=== PATIENT | female | born 1990 | race Caucasian/White ===

== ENCOUNTER 2018-12-22 20:02 | Emergency (ER) | payer MEDICAID, OTHER ==
[~2018-12-22] VITALS: Ht 177.8 cm; Wt 104.0 kg
[~2018-12-22 20:02] MED LIST: ACET325T33 PO; CEPH500C PO; HYDR-4011 PO; IBUP-1542 PO; IBUP800T48 PO
[2018-12-22 20:08] VITALS: BP 126/73; PULSE 77; RESP 18; Ht 177.8 cm; Wt 104.0 kg
[2018-12-22] MEDS ORDERED: ACETAMINOPHEN 325 MG TAB PO STA (20:28)
--- NOTE | 2018-12-22 20:39 | ERD ---
ER Documentation Chief Complaint Chief Complaint VAGINAL BLEEDING WITH CLOTS STARTED TODAY HPI Patient is a 28-year-old male presenting to clinic for abdominal cramps and bleeding x2 days. Patient states she is 5 weeks and the bleeding started yesterday with a little bit of spotting and today she is had a little bit of clots. The patient is G2, P1, A0. The patient states she was seen at another clinic yesterday and was informed that she had a UTI and was sent home with Keflex. The patient states she has no allergies to medication and she is currently only taking vitamins. The patient also states that she has a 7 out of 10 headache that is unilateral. The patient is presenting with vitals within normal limits. The patient does not have an QUALITY TECHNICIAN yet for this . ROS All systems reviewed and are negative except as per history of present illness. Medications Home Meds Active Scripts Cephalexin* (Cephalexin*) 500 Mg Capsule, 500 MG PO BID for 10 Days, #20 CAP Prov:EMMETT BHANDARI PA-C 12/22/18 Acetaminophen* (Tylenol*) 325 Mg Tablet, 1 TAB PO Q6 PRN for PAIN AND OR ELEVATED TEMP, #20 TAB Prov:EMMETT BHANDARI PA-C 12/22/18 Allergies Allergies: Coded Allergies: No Known Allergy (Unverified , 01/01/15) PMhx/Soc History of Surgery: Yes (gallbladder) Anesthesia Reaction: No Hx Alcohol Use: No Hx Substance Use: No Hx Tobacco Use: No Smoking Status: Never smoker FmHx Family History: No diabetes, No coronary disease, No other Physical Exam Vitals Vital Signs Date Temp Pulse Resp B/P (MAP) Pulse Ox O2 O2 Flow FiO2 Time Delivery Rate 12/22/18 98.1 77 18 126/73 100 20:08 (90) Physical Exam GENERAL: The patient is well-appearing, well-nourished, in no acute distress HEENT: Atraumatic. Conjunctivae are pink. Pupils equal, round, and reactive to light. There is no scleral icterus. Tympanic membranes clear bilaterally. O ropharynx clear. No nystagmus or photophobia. NECK: C-spine is soft and supple. There is no meningismus. There is no cervical lymphadenopathy. CHEST: Clear to auscultation bilaterally. There are no rales, wheezes or rhonchi. HEART: Regular rate and rhythm. No murmurs, clicks, rubs or gallops. ABDOMEN:Soft, nontender and nondistended. Good bowel sounds. No rebound or guarding. No gross peritonitis. No gross organomegaly or masses. No Crowley sign or McBurney point tenderness. BACK: No midline or flank tenderness. EXTREMITIES: Equal pulses bilaterally. There is no peripheral clubbing, cyanosis or edema. No focal swelling or erythema. Full range of motion. Grossly neurovascularly intact. Result Diagram: 12/22/182034 Results 24 hrs Laboratory Tests Test 12/22/18 20:34 12/22/18 20:35 Urine Color YELLOW Urine Clarity TURBID Urine pH 7.0 Urine Specific [place] 1.016 Urine Ketones NEGATIVE mg/dL Urine Nitrite NEGATIVE mg/dL Urine Bilirubin NEGATIVE mg/dL Urine Urobilinogen NEGATIVE mg/dL Urine Leukocyte Esterase TRACE Mehdi/ul Urine Microscopic RBC 74 /HPF Urine Microscopic WBC 15 /HPF Urine Squamous Epithelial Cells FEW /HPF Urine Amorphous Crystals FEW /HPF Urine Mucus FEW /HPF Urine Hemoglobin 3+ mg/dL Urine Glucose NEGATIVE mg/dL Urine Total Protein NEGATIVE mg/dl White Blood Count 8.3 10^3/ul Red Blood Count 4.29 10^6/ul Hemoglobin 12.7 g/dl Hematocrit 37.8 % Mean Corpuscular Volume 88.1 fl Mean Corpuscular Hemoglobin 29.6 pg Mean Corpuscular Hemoglobin Concent 33.6 g/dl Red Cell Distribution Width 12.4 % Platelet Count 295 10^3/UL Mean Platelet Volume 8.6 fl Immature Granulocytes % 0.200 % Neutrophils % 62.6 % Lymphocytes % 28.8 % Monocytes % 6.0 % Eosinophils % 1.8 % Basophils % 0.6 % Nucleated Red Blood Cells % 0.0 /100WBC Immature Granulocytes # 0.020 10^3/ul Neutrophils # 5.2 10^3/ul Lymphocytes # 2.4 10^3/ul Monocytes # 0.5 10^3/ul Eosinophils # 0.2 10^3/ul Basophils # 0.1 10^3/ul Nucleated Red Blood Cells # 0.0 10^3/ul Beta HCG, Quantitative 7569.0 mIU/ml Current Medications Medications Dose Sig/Jay Start Time Status Last (Trade) Ordered Route PRN Stop Time Admin Dose Reason Admin 650 mg ONCE STAT 12/22/18 DC 12/22/18 Acetaminophen PO 20:28 12/22/18 21:19 (Tylenol 20:29 Tab) Procedures/MDM ED course: The patient was stable throughout the ED course. The patient and/or family informed of laboratory and diagnostic imaging results throughout the ED course. Diagnostic imaging: Read by radiologist Dr. Gold PROCEDURE: US Obstetrical 1st Trimester with endovaginal scanning and Doppler CLINICAL INDICATION: Vaginal bleeding TECHNIQUE: Multiple real-time images were acquired of the patient's maternal abdomen utilizing a curved array transducer. COMPARISON: None FINDINGS: The uterus is retroverted and normal in size measuring 8.3 cm in sagittal diameter and 6.4 x 5.1 cm in cross diameter.. There is a well implanted gestational sac within the fundus of the uterus with a mean sac diameter of 1.31 cm which corresponds to a gestational sac age of 6 weeks 1 day. A yolk sac is identified. No pole is identified. The right ovary measures 4.5 x 2.4 x 2.2 cm and contains a 1.1 cm corpus lutein cyst is evident. The left ovary measures 3.1 x 2.6 x 8-0.3 cm and appears normal. Vascular flow is demonstrated in each ovary on Doppler. There is a trace amount of free fluid in the cul-de-sac. No adnexal mass is evident. IMPRESSION: 1. Intrauterine of unknown viability. There is an intrauterine gestational sac with a yolk sac. Estimated gestational age by mean sac diameter is 6 weeks 1 day. At this early gestational age, an embryo is not yet identified and viability cannot be established. Recommend correlation with serum Beta HCG and follow-up ultrasound in 10-14 days or earlier if clinically warranted. 2. 1.1 cm right ovarian corpus lutein cyst. The left ovary appears normal. Vascular flow is demonstrated in each ovary on Doppler. 3. Trace amount of free fluid with no adnexal mass evident. Medications given in ER: Acetaminophen Patient tolerated medication well with no adverse reactions. Patient reported improvement in pain. Medical decision making: This is a 28-year-old female who is 5 weeks resenting with with vaginal bleeding. Vital signs were reviewed. Patient was afebrile. Patient was hemodynamically stable. Urine test was positive. Quantitative b-HCG was 7569.0. Patient Rh+.CBC showed no evidence of systemic infection or severe anemia. The patient UA indicated the patient has a UTI. The patient states that she was seen at another facility yesterday and was given a prescription for Keflex and she has been taking her medication. Advised the patient that I am going to send her home with another prescription just in case she cannot find that one and that is important that she treats this UTI during . I advised the patient not to double up on the medication and only fill mine if she cannot track down her Keflex. Given these findings, the patients presentation is most consistent with threatened . I have a much lower clinical concern for ectopic , ruptured ectopic , molar , subchorionic hematoma, spontaneous , incomplete , complete , missed , placental abruption, placental previa, vasa previa, uterine rupture, anembyronic . I advised the patient that she needs to return in 3 days for a recheck of beta hCG and ultrasound. Advised the patient that if the symptoms worsen to return to ER immediately. Advised the patient that she needs to contact her QUALITY TECHNICIAN and let her know that she was seen in the ER for this. The patient is agreement the treatment plan and understands the risk of threatened . The patient no further questions upon discharge Prescription for home: Keflex Acetaminophen I have discussed with the patient proper use and common side effects to expert with the medication . I advised the patient/family to speak with the pharmacist dispensing the medication to be advised of any potential drug interactions with other medication or supplements they may be taking. Discharge: At this time, patient is stable for discharge and outpatient management. I have instructed the patient to follow-up with his\her primary care physician in 1 to 2 days. I have discussed with the patient the possibility of needing to see a specialist for further work-up and imaging studies if symptoms persist. I have instructed the patient to promptly return to the ER for any new or worsening symptoms including increased pain, fever, nausea, vomiting, weakness or LOC. The patient and\or family expressed understanding of and agreement with this plan. All questions were answered. Home care instructions were provided. Disclaimer: Inadvertent spelling and grammatical errors are likely due to EHR\dictation software use and do not reflect on the overall quality of patient care. Also, please note that the electronic time recorded on the note does not necessarily reflect the actual time of the patient encounter. Departure Diagnosis: Primary Impression: Vaginal bleeding in patient at less than 20 weeks gestation Additional Impression: Threatened in first trimester Condition: EMMETT Esparza PA-C Dec 22, 2018 20:39
== END 2018-12-22 22:06 | disposition home or self-care (01) ==
LOC: FTE 20:02
DX: O20.0 Threatened abortion (principal); Z3A.01 Less than 8 weeks gestation of pregnancy
CPT/HCPCS: 36415; 76801; 76817; 81001; 84702; 85025; 86900; 86901; Z7502; Z7610

== ENCOUNTER 2018-12-23 21:41 | Emergency (ER) | payer MEDICAID ==
[~2018-12-23] VITALS: Ht 177.8 cm; Wt 105.0 kg
[2018-12-23 21:43] VITALS: Ht 177.8 cm; Wt 105.0 kg
[2018-12-24] MEDS ORDERED: ONDANSETRON (ODT) 4 MG TAB ODT STA (00:09)
[2018-12-24] MEDS ORDERED: morphine 4 MG/ML VIAL IM STA (00:09)
--- NOTE | 2018-12-24 00:27 | ERD ---
ER Documentation Chief Complaint Chief Complaint VB X 3 DAYS. HPI 28-year-old female presents with vaginal bleeding for last 3 days. She is having worsening cramping. She was seen here yesterday and had an ultrasound which shows a gestational sac and yolk sac in uterus. She had a quantitative hCG of 7569. She is Rh+. She is a G2 para 1. She was seen 2 days prior to that and had a quantitative hCG approximately 4000. She denies any tissue or clots. ROS All systems reviewed and are negative except as per history of present illness. Medications Home Meds Active Scripts Ibuprofen* (Motrin*) 600 Mg Tab, 600 MG PO Q6, #15 TAB Prov:LAXMI BAKER MD 12/24/18 Hydrocodone/Acetaminophen ([place] 5-325 Tablet) 1 Each Tablet, 1 TAB PO Q6H PRN for PAIN, #7 TAB Prov:LAXMI BAKER MD 12/24/18 Cephalexin* (Cephalexin*) 500 Mg Capsule, 500 MG PO BID for 10 Days, #20 CAP Prov:EMMETT BHANDARI PA-C 12/22/18 Acetaminophen* (Tylenol*) 325 Mg Tablet, 1 TAB PO Q6 PRN for PAIN AND OR ELEVATED TEMP, #20 TAB Prov:EMMETT BHANDARI PA-C 12/22/18 Allergies Allergies: Coded Allergies: No Known Allergy (Unverified , 01/01/15) PMhx/Soc Medical and Surgical Hx: pt denies Medical Hx History of Surgery: Yes (gallbladder) Anesthesia Reaction: No Hx Neurological Disorder: No Hx Respiratory Disorders: No Hx Cardiac Disorders: No Hx Psychiatric Problems: No Hx Miscellaneous Medical Probl: No Hx Alcohol Use: No Hx Substance Use: No Hx Tobacco Use: No Smoking Status: Never smoker FmHx Family History: No diabetes, No coronary disease, No other Physical Exam Vitals Vital Signs Date Temp Pulse Resp B/P (MAP) Pulse Ox O2 O2 Flow FiO2 Time Delivery Rate 12/23/18 98.3 83 16 116/62 98 21:43 (80) Physical Exam Const: No acute distress Head: Atraumatic Eyes: Normal Conjunctiva ENT: Normal External Ears, Nose and Mouth. Neck: Full range of motion. No meningismus. Resp: Clear to auscultation bilaterally Cardio: Regular rate and rhythm, no murmurs Abd: Soft, tenderness in the lower midline abdomen or suprapubic area. No tension McBurney's point no Crowley sign or rebound. Non distended. Normal bowel sounds Skin: No petechiae or rashes Back: No midline or flank tenderness Ext: No cyanosis, or edema Neur: Awake and alert Psych: Normal Mood and Affect Result Diagram: 12/23/18 5747 Results 24 hrs Laboratory Tests Test 12/23/18 22:46 12/23/18 22:51 Urine Color GAVI Urine Clarity CLOUDY Urine pH 6.0 Urine Specific [place] 1.027 Urine Ketones NEGATIVE mg/dL Urine Nitrite NEGATIVE mg/dL Urine Bilirubin NEGATIVE mg/dL Urine Urobilinogen NEGATIVE mg/dL Urine Leukocyte Esterase NEGATIVE Mehdi/ul Urine Microscopic RBC > 182 /HPF Urine Microscopic WBC 3 /HPF Urine Squamous Epithelial Cells FEW /HPF Urine Mucus FEW /HPF Urine Hemoglobin 3+ mg/dL Urine Glucose NEGATIVE mg/dL Urine Total Protein 2+ mg/dl White Blood Count 9.9 10^3/ul Red Blood Count 4.41 10^6/ul Hemoglobin 13.0 g/dl Hematocrit 38.8 % Mean Corpuscular Volume 88.0 fl Mean Corpuscular Hemoglobin 29.5 pg Mean Corpuscular Hemoglobin Concent 33.5 g/dl Red Cell Distribution Width 12.3 % Platelet Count 305 10^3/UL Mean Platelet Volume 8.5 fl Immature Granulocytes % 0.300 % Neutrophils % 57.6 % Lymphocytes % 34.4 % Monocytes % 5.6 % Eosinophils % 1.8 % Basophils % 0.3 % Nucleated Red Blood Cells % 0.0 /100WBC Immature Granulocytes # 0.030 10^3/ul Neutrophils # 5.7 10^3/ul Lymphocytes # 3.4 10^3/ul Monocytes # 0.6 10^3/ul Eosinophils # 0.2 10^3/ul Basophils # 0.0 10^3/ul Nucleated Red Blood Cells # 0.0 10^3/ul Beta HCG, Quantitative 6246.2 mIU/ml Current Medications Medications Dose Sig/Jay Start Time Status Last (Trade) Ordered Route PRN Stop Time Admin Dose Reason Admin Ondansetron 8 mg ONCE STAT 12/24/18 DC HCl (Zofran ODT 00:09 12/24/18 Odt) 00:10 Morphine 4 mg ONCE STAT 12/24/18 DC Sulfate IM 00:09 12/24/18 (morphine) 00:20 1 tab ONCE ONCE 12/24/18 Acetaminophen PO 00:30 12/24/18 / 00:31 Hydrocodone Bitart ([place] (5/325)) Procedures/MDM Patient is Rh+ from previous visit. Quantitative hCG is 6246 which is decreased from yesterday. Pelvic ultrasound shows yolk sac and pole now in the cervical canal suggestive of an in progress. Patient been having worsening cramping and pain throughout the ER course. She is given [place] 5 mg by mouth in addition to Tylenol. Patient presents with vaginal bleeding worsening over the last few days with signs and symptoms of likely threatened . Ectopic less likely. Normal less likely from decreasing hCGs. Patient shows no sign of hemorrhaging, surgical abdomen, sepsis. She would be treated with further observation at home, [place] and primary care follow-up this week. She is advised to return for worsening bleeding, fevers, pain, new worsening symptoms or as directed. The patient was stable with no new complaints during the ER course. Clinically, there is no current evidence to suggest meningitis, sepsis, acute abdomen, pneumonia, stroke, acute coronary syndrome, pulmonary embolism, aortic dissection or any other emergent condition appearing to require further evaluation or hospit alization. Patient counseled regarding my diagnostic impression and care plan. Prior to discharge all questions answered. Pt agrees with treatment plan and understands strict return precautions. Pt is instructed to follow up with primary care provider within 24-48 hours. Precautionary instructions provided including instructions to return to the ER if not improving or for any worsening or changing symptoms or concerns. Disclaimer: Inadvertent spelling and grammatical errors are likely due to E HR/dictation software use and do not reflect on the overall quality of patient care. Also, please note that the electronic time recorded on this note does not necessarily reflect the actual time of the patient encounter. Departure Diagnosis: Primary Impression: Threatened in first trimester Condition: Stable Patient Instructions: Vaginal Bleed in , Possible Miscarriage (Threa tened ) Referrals: NO PRIMARY,CARE PHYSICIAN (PCP) Additional Instructions: Examination showed hormone levels decreasing and appears to be likely miscarriage in progress. Recheck for heavy bleeding, tissue, pain, fevers, new worsening symptoms. See OB this week for follow-up. LAXMI BAKER MD Dec 24, 2018 00:27
[2018-12-24] MEDS ORDERED: HYDROCODONE/APAP (5/325) TAB PO ONE (00:30)
[2018-12-24 01:15] VITALS: BP 117/61; PULSE 66; RESP 16
== END 2018-12-24 01:25 | disposition home or self-care (01) ==
LOC: FTE 21:41
DX: O20.0 Threatened abortion (principal); Z3A.00 Weeks of gestation of pregnancy not specified
CPT/HCPCS: 36415; 76801; 76817; 81001; 84702; 85025; Z7502; Z7610

== ENCOUNTER 2018-12-24 01:45 | Emergency (ER) | payer MEDICAID ==
[~2018-12-24] VITALS: Ht 177.8 cm; Wt 105.7 kg
[2018-12-24 01:47] VITALS: Ht 177.8 cm; Wt 105.7 kg
[2018-12-24] MEDS ORDERED: LACTATED RINGER'S 1,000 ML IV STA (02:09)
[2018-12-24] MEDS ORDERED: ACETAMINOPHEN 500 MG TAB PO STA (03:26)
--- NOTE | 2018-12-24 04:16 | ERD ---
ER Documentation Chief Complaint Chief Complaint ABD CRAMPING PAIN, JUST PASSED POC. PASSED OU WHILE BEING TRIAGE. HPI This is a 28-year-old female who presents to the emergency room for evaluation of abdominal cramping, and miscarriage. The patient was seen in the emergency room a few hours ago and was discharged home with a diagnosis of inevitable . The patient states that when she was leaving the emergency room she actually felt some discharge and went to the restroom and she states she passed the fetus. The patient states that she was approximately 7 weeks . The patient states she felt a little weak after this happened and was brought back to the emergency room for reevaluation. ROS All systems reviewed and are negative except as per history of present illness. Medications Home Meds Active Scripts Ibuprofen* (Motrin*) 600 Mg Tab, 600 MG PO Q6, #15 TAB Prov:LAXMI BAKER MD 12/24/18 Hydrocodone/Acetaminophen ([place] 5-325 Tablet) 1 Each Tablet, 1 TAB PO Q6H PRN for PAIN, #7 TAB Prov:LAXMI BAKER MD 12/24/18 Cephalexin* (Cephalexin*) 500 Mg Capsule, 500 MG PO BID for 10 Days, #20 CAP Prov:EMMETT BHANDARI PA-C 12/22/18 Acetaminophen* (Tylenol*) 325 Mg Tablet, 1 TAB PO Q6 PRN for PAIN AND OR ELEVATED TEMP, #20 TAB Prov:EMMETT BHANDARI PA-C 12/22/18 Allergies Allergies: Coded Allergies: No Known Allergy (Unverified , 01/01/15) PMhx/Soc History of Surgery: Yes (gallbladder) Anesthesia Reaction: No Hx Neurological Disorder: No Hx Respiratory Disorders: No Hx Cardiac Disorders: No Hx Psychiatric Problems: No Hx Miscellaneous Medical Probl: No Hx Alcohol Use: No Hx Substance Use: No Hx Tobacco Use: No Smoking Status: Never smoker Physical Exam Vitals Vital Signs Date Temp Pulse Resp B/P (MAP) Pulse Ox O2 O2 Flow FiO2 Time Delivery Rate 12/24/18 98.1 78 22 117/63 99 01:47 (81) Physical Exam Const: No acute distress Head: Atraumatic Eyes: Normal Conjunctiva ENT: Normal External Ears, Nose and Mouth. Neck: Full range of motion. No meningismus. Resp: Clear to auscultation bilaterally Cardio: Regular rate and rhythm, no murmurs Abd: Soft, non tender, non distended. Normal bowel sounds Skin: No petechiae or rashes Back: No midline or flank tenderness Ext: No cyanosis, or edema Neur: Awake and alert Psych: Normal Mood and Affect Results 24 hrs Current Medications Medications Dose Sig/Jay Start Time Status Last (Trade) Ordered Route PRN Stop Time Admin Dose Reason Admin Lactated 1,000 ml @ Q1H STAT 12/24/18 DC 12/24/18 Ringer's 1,000 mls/hr IV 02:09 12/24/18 02:29 03:08 1,000 mg ONCE STAT 12/24/18 DC 12/24/18 Acetaminophen PO 03:26 12/24/18 03:30 (Tylenol 03:27 Tab) Procedures/MDM Pelvic ultrasound: No retained products This 28-year-old female presents to the ER for evaluation after a miscarriage. The patient was afebrile and nontoxic-appearing on my examination. She was recently discharged with diagnosis of inevitable . Repeat ultrasound shows no retained products of conception. The patient is undergone a complete miscarriage and she is remained hemodynamically stable. She was given IV fluids and will be discharged at this time with a prescription for Motrin for cramping. Departure Diagnosis: Primary Impression: Complete Additional Impression: Abdominal cramps Condition: MARIO Cash DO Dec 24, 2018 04:16
[2018-12-24 04:33] VITALS: BP 105/57; PULSE 80; RESP 15
== END 2018-12-24 04:36 | disposition home or self-care (01) ==
LOC: E/R 01:45
DX: O03.9 Complete or unspecified spontaneous abortion without complication (principal)
CPT/HCPCS: 76801; 76817; J7120; Z7502; Z7610